=== PATIENT | female | born 1955 | race Hispanic/Latino ===

== ENCOUNTER 2018-01-13 15:21 | Outpatient (CLI) | payer OTHER ==
--- NOTE | 2018-01-13 18:07 | RAD ---
RIGHT KNEE TWO VIEWS: HISTORY: Right knee pain. FINDINGS: Joint spaces are preserved. Mild fluid distention of the suprapatellar bursa. Mild osteophytosis. No acute fracture or dislocation is evident. IMPRESSION: Small amount of joint fluid that may represent an effusion from otherwise mild degenerative changes o r could represent hemarthrosis from internal derangement. No acute osseous abnormalities are demonst rated. POS: [facility]
== END 2018-01-13 15:22 | disposition home or self-care (01) ==
LOC: BICRAD 15:21
PROVIDERS: ATTEND Nurse Practitioner Family
DX: M25.561 Pain in right knee (principal)

== ENCOUNTER 2023-08-13 10:00 | Outpatient (CLI) | payer MEDICARE, MEDICAID | END 2023-08-13 10:01 | disposition home or self-care (01) | LOC: CT 10:00 | PROVIDERS: ATTEND Orthopaedic Surgery | DX: M17.0 Bilateral primary osteoarthritis of knee (principal) ==

== ENCOUNTER 2023-12-10 11:47 | Outpatient (CLI) | payer MEDICARE, MEDICAID ==
[2023-12-10 13:15] LABS: #Basophils 0.03 10x3/uL (0.0-0.2); %Basophils 0.3 % (0.0-1.0); %Eosinophils 1.6 % (0.0-10.0); %Lymphocytes 26.8 % (21.0-51.0); %Monocytes 7.4 % (0.0-10.0); %Neutrophils 63.6 % (42.0-75.0); Mean Corpuscular HGB CONC 33.3 g/dL (32.0-36.0); Mean Corpuscular Hemoglobin 29.8 pg (27.0-31.0); Mean Corpuscular Volume 89.5 fL (78.0-98.0); Mean Platelet Volume 10.1 fL (7.4-10.4); Platelet Count 242 10x3/uL (130-400); RBC Distribution Width 12.1 % (11.5-14.5); Red Blood Cell (RBC) Count 5.03 mill/uL (4.20-5.40)
[2023-12-10 13:28] LABS: Anion Gap 14 mmol/L (10-20); BUN (Urea Nitrogen) 16 mg/dL (9.8-20.1); Calc. Creatinine Clearance 0 mL/min (70-130); Calcium 9.9 mg/dL (7.8-10.44); Carbon Dioxide 26 mmol/L (23-31); Chloride 104 mmol/L (98-107); Estimated GFR 95; Glucose 103 mg/dL (80-115); Potassium 3.5 mmol/L (3.5-5.1); Sodium 140 mmol/L (136-145)
== END 2023-12-10 11:48 | disposition home or self-care (01) ==
LOC: LABBT 11:47
PROVIDERS: ATTEND Orthopaedic Surgery
DX: Z01.818 Encounter for other preprocedural examination (principal); M17.0 Bilateral primary osteoarthritis of knee
CPT/HCPCS: 80048; 85025; 85610; 87081; 93005; 93010

== ENCOUNTER 2024-03-25 15:17 | Observation (INO) | payer MEDICARE, MEDICAID ==
[2024-03-25 15:49] LABS: #Basophils 0.04 10x3/uL (0.0-0.2); %Basophils 0.4 % (0.0-1.0); %Eosinophils 1.2 % (0.0-10.0); %Lymphocytes 26.6 % (21.0-51.0); %Monocytes 8.5 % (0.0-10.0); %Neutrophils 63.1 % (42.0-75.0); Hematocrit 41.1 % (36.0-47.0); Hemoglobin 13.8 g/dL (12.0-16.0); Mean Corpuscular HGB CONC 33.6 g/dL (32.0-36.0); Mean Corpuscular Hemoglobin 29.5 pg (27.0-31.0); Mean Corpuscular Volume 87.8 fL (78.0-98.0); Platelet Count 241 10x3/uL (130-400); RBC Distribution Width 12.2 % (11.5-14.5); Red Blood Cell (RBC) Count 4.68 mill/uL (4.20-5.40)
[2024-03-25] MEDS ORDERED: Aspirin Chewable 81 MG TAB ONE (16:02)
[2024-03-25 16:05] LABS: Troponin I Less than 0.010 ng/mL (< 0.028)
[2024-03-25 16:12] LABS: ALT (SGPT) 12 U/L (8-55); AST (SGOT) 18 U/L (5-34); Albumin 3.8 g/dL (3.4-4.8); Alkaline Phosphatase 120 U/L (40-110); Anion Gap 11 mmol/L (10-20); BUN (Urea Nitrogen) 13 mg/dL (9.8-20.1); Bilirubin, Total 0.3 mg/dL (0.2-1.2); Calc. Creatinine Clearance 0 mL/min (70-130); Carbon Dioxide 28 mmol/L (23-31); Chloride 102 mmol/L (98-107); Estimated GFR 98; Globulin 3.9 g/dL (2.4-3.5); Glucose 104 mg/dL (80-115); Potassium 3.4 mmol/L (3.5-5.1); Protein, Total 7.7 g/dL (5.8-8.1); Sodium 138 mmol/L (136-145)
[2024-03-25] MEDS ORDERED: Ondansetron PF 4 MG/2 ML Vial IVP PRN (18:42)
[2024-03-25] MEDS ORDERED: Zolpidem Tartrate 5 MG TAB PO PRN (18:42)
[2024-03-25] MEDS ORDERED: Senokot S 8.6-50 MG TAB PO PRN (18:42)
[2024-03-25] MEDS ORDERED: Calcium Carbonate 500 MG ChewTAB PO PRN (18:42)
[2024-03-25 20:39] VITALS: BMI 29.5
[2024-03-25] MEDS: Metoprolol Tartrate 25 MG TAB PO SCH (21:18)
[2024-03-25] MEDS: Guaifenesin DM 100-10/5 ML UDCUP PO PRN (21:18)
[2024-03-25] MEDS: Potassium Chloride 20 MEQ TAB PO SCH (21:18)
[2024-03-25] MEDS: Acetaminophen 325 MG TAB PO PRN (21:18)
[2024-03-25] MEDS: Nitroglycerin 0.4 MG TAB (25 Tab Bottle) SL PRN (21:19)
[2024-03-25 21:33] LABS: Troponin I Less than 0.010 ng/mL (< 0.028)
[2024-03-26 05:19] LABS: Anion Gap 11 mmol/L (10-20); BUN (Urea Nitrogen) 11 mg/dL (9.8-20.1); Calc. Creatinine Clearance 111 mL/min (70-130); Calcium 9.1 mg/dL (7.8-10.44); Carbon Dioxide 29 mmol/L (23-31); Chloride 105 mmol/L (98-107); Cholesterol 107 mg/dl (< 200 Desired); Estimated GFR 98; Glucose 108 mg/dL (80-115); HDL Cholesterol 27 mg/dL (>60 Neg Risk); LDL Cholesterol, Calculated 41 mg/dL; Potassium 3.8 mmol/L (3.5-5.1); Sodium 141 mmol/L (136-145); Triglycerides 197 mg/dL (Less than 150); Troponin I Less than 0.010 ng/mL (< 0.028)
[2024-03-26 08:22] VITALS: BP 157/81; TEMP 98.1
[2024-03-26] MEDS: Aspirin 81 mg Enteric Coated Tablet PO SCH (09:39)
[2024-03-26] MEDS ORDERED: Regadenoson 0.4 MG/5 ML SYRINGE ONE (11:10)
== END 2024-03-26 15:35 | disposition home or self-care (01) ==
LOC: ERS 15:17 → OBS 18:29
PROVIDERS: ADMIT Family Medicine; ATTEND Internal Medicine
DX: R07.9 Chest pain, unspecified (principal); I10 Essential (primary) hypertension; E78.5 Hyperlipidemia, unspecified; E87.6 Hypokalemia; M19.90 Unspecified osteoarthritis, unspecified site; Z90.710 Acquired absence of both cervix and uterus; Z90.49 Acquired absence of other specified parts of digestive tract; Z96.659 Presence of unspecified artificial knee joint
CPT/HCPCS: 71045; 78452; 80048; 80053; 80061; 83880; 84484 ×3; 85025; 86141; 93005; 93017; 99285; A9502; G0378 ×3; J2785 ×2; 36415